=== PATIENT | male | born 1960 | race Caucasian/White ===

== ENCOUNTER 2021-04-22 09:49 | Outpatient (CLI) | payer OTHER | END 2021-04-22 09:50 | disposition home or self-care (01) | LOC: TBSIIMAG 09:49 | PROVIDERS: ATTEND Orthopaedic Surgery Hand Surgery | DX: S63.591A Other specified sprain of right wrist, initial encounter (principal); S63.071A Subluxation of distal end of right ulna, initial encounter; M24.832 Other specific joint derangements of left wrist, not elsewhere classified ==

== ENCOUNTER 2025-03-16 15:23 | Outpatient (CLI) | payer OTHER | END 2025-03-16 15:24 | disposition home or self-care (01) | LOC: SCSRAD 15:23 | PROVIDERS: ATTEND Family Medicine | DX: M54.2 Cervicalgia (principal); M47.812 Spondylosis without myelopathy or radiculopathy, cervical region | CPT/HCPCS: 36415; 72040; 80053; 80061; 82043; 82306; 82607; 84443; 85025; G0103 ==